=== PATIENT | female | born 1985 | race Caucasian/White ===

== ENCOUNTER 2019-04-19 13:24 | Emergency (ER) | payer MEDICAID ==
[~2019-04-19] VITALS: Ht 165.1 cm; Wt 61.2 kg
[2019-04-19 14:10] VITALS: BP 113/52
[2019-04-19] MEDS ORDERED: IBUPROFEN 800 MG TAB PO ONE (14:30)
[2019-04-19] MEDS ORDERED: HYDROcodone-ACET 10/325MG TAB PO ONE (14:45)
[2019-04-19] MEDS ORDERED: TETANUS-DIPTH-ACEL PERTUSSIS 0.5ML SYRG IM ONE (14:45)
[2019-04-19 15:23] LABS: Urine Bacteria NONE SEEN /hpf (None Seen); Urine Blood Negative /uL (Negative); Urine Specific Gravity 1.023 (1.001-1.035); Urine WBC 40 /hpf (0 - 5)
== END 2019-04-19 15:49 | disposition home or self-care (01) ==
LOC: ER 13:30
DX: S82.401A Unspecified fracture of shaft of right fibula, initial encounter for closed fracture (principal); S82.891A Other fracture of right lower leg, initial encounter for closed fracture; N39.0 Urinary tract infection, site not specified; E10.8 Type 1 diabetes mellitus with unspecified complications; W20.8XXA Other cause of strike by thrown, projected or falling object, initial encounter; Y93.89 Activity, other specified; Y99.8 Other external cause status; Y92.89 Other specified places as the place of occurrence of the external cause
CPT/HCPCS: 29515; 73610; 81001; 87086; 90471; 90715

== ENCOUNTER 2024-03-30 17:08 | Emergency (ER) | payer MEDICAID ==
[~2024-03-30] VITALS: Ht 165.1 cm; Wt 67.5 kg
[2024-03-30 21:37] VITALS: BP 125/72; PULSE 64; RESP 18; TEMP 98.1; O2SAT 95
[2024-03-30] MEDS: TETANUS-DIPTH-ACEL PERTUSSIS 0.5ML SYR Tdap IM ONE (22:40)
[2024-03-30] MEDS: RABIES VACCINE (PCEC)/PF 2.5 UNITS IM ONE (23:08)
[2024-03-30] MEDS: RABIES IMMUNE GLOBULIN 300unit/2ml (150unit/ml) INJ IM ONE (23:13)
== END 2024-03-30 23:13 | disposition home or self-care (01) ==
LOC: ER 17:08
DX: S60.512A Abrasion of left hand, initial encounter (principal); S60.511A Abrasion of right hand, initial encounter; E11.9 Type 2 diabetes mellitus without complications; F32.9 Major depressive disorder, single episode, unspecified; Z98.890 Other specified postprocedural states; Z88.8 Allergy status to other drugs, medicaments and biological substances; W54.0XXA Bitten by dog, initial encounter; Y93.89 Activity, other specified; Y92.89 Other specified places as the place of occurrence of the external cause; Y99.8 Other external cause status
CPT/HCPCS: 90471; 90472; 90675; 90715

== ENCOUNTER 2024-04-02 14:00 | Emergency (ER) | payer MEDICAID ==
[~2024-04-02] VITALS: Ht 165.1 cm; Wt 65.9 kg
[2024-04-02 15:08] VITALS: BP 128/90; PULSE 69; RESP 16; TEMP 98.2; O2SAT 98
[2024-04-02] MEDS: RABIES VACCINE (PCEC)/PF 2.5 UNITS IM ONE (15:27)
== END 2024-04-02 15:28 | disposition home or self-care (01) ==
LOC: ER 14:00
DX: S61.431D Puncture wound without foreign body of right hand, subsequent encounter (principal); E11.9 Type 2 diabetes mellitus without complications; Z29.14 Encounter for prophylactic rabies immune globulin; Z88.2 Allergy status to sulfonamides; W54.0XXD Bitten by dog, subsequent encounter
CPT/HCPCS: 90471; 90675; 96372